=== PATIENT | female | born 1945 | race Two or more races ===

== ENCOUNTER 2023-10-22 09:16 | Outpatient (CLI) | payer OTHER ==
[~2023-10-22 09:16] MED LIST: SYNTHROID75 MCG; SYNTHROID75 MCG PO
== END 2023-10-22 09:24 | disposition home or self-care (01) ==
LOC: MAMO-SONO 09:16
PROVIDERS: ATTEND Obstetrics & Gynecology Maternal & Fetal Medicine
DX: N63.0 Unspecified lump in unspecified breast (principal); N64.4 Mastodynia; N60.11 Diffuse cystic mastopathy of right breast; Z12.31 Encounter for screening mammogram for malignant neoplasm of breast

== ENCOUNTER 2023-12-10 07:58 | Outpatient (CLI) | payer OTHER | END 2023-12-10 08:03 | disposition home or self-care (01) | LOC: MAMO-SONO 07:58 | PROVIDERS: ATTEND Obstetrics & Gynecology Maternal & Fetal Medicine | DX: N63.11 Unspecified lump in the right breast, upper outer quadrant (principal) ==

== ENCOUNTER 2024-01-11 10:36 | Outpatient (CLI) | payer OTHER | END 2024-01-11 10:37 | disposition home or self-care (01) | LOC: LAB 10:36 → EKG 10:36 → LAB 10:37 | PROVIDERS: ATTEND Internal Medicine Cardiovascular Disease | DX: I10 Essential (primary) hypertension (principal) ==

== ENCOUNTER 2024-12-05 07:45 | Outpatient (CLI) | payer OTHER | END 2024-12-05 07:48 | disposition home or self-care (01) | LOC: SONOGRAMA 07:45 | PROVIDERS: ATTEND Internal Medicine Cardiovascular Disease | DX: N60.11 Diffuse cystic mastopathy of right breast (principal); N60.12 Diffuse cystic mastopathy of left breast; Z12.31 Encounter for screening mammogram for malignant neoplasm of breast; N80.9 Endometriosis, unspecified ==

== ENCOUNTER 2024-12-19 13:36 | Outpatient (CLI) | payer OTHER | END 2024-12-19 13:39 | disposition home or self-care (01) | LOC: SONOGRAMA 13:36 | PROVIDERS: ATTEND Obstetrics & Gynecology Maternal & Fetal Medicine | DX: R10.2 Pelvic and perineal pain (principal) ==